=== PATIENT | female | born 1985 | race Two or more races ===

== ENCOUNTER 2019-06-29 09:22 | Emergency (ER) | payer OTHER ==
[2019-06-29 09:51] VITALS: TEMP 98.4; BMI 32.4
--- NOTE | 2019-06-29 11:19 | PDOC ---
History of Present Illness - General Chief Complaint: Vaginal Bleeding Stated Complaint: 7WKS/BLEEDING Time Seen by Provider: 06/29/19 09:58 - History of Present Illness Initial Comments: 06/29/19 11:17 CHIEF COMPLAINT: vag bldg in HISTORY OF PRESENT ILLNESS: 33 yo with hx of ectopic and miscarriage presents to ED with vaginal bleeding since yesterday. Patient reports noticing small clots since last night and today but is not filling any pads. Patient reports she does not have an OB at this time . LMP 05/08/19 No recent travel or sick contacts. PAST MEDICAL HISTORY: Denies past medical history FAMILY HISTORY: Denies SOCIAL HISTORY: Denies tobacco, alcohol, illicit drug use. SURGICAL HISTORY: Denies ALLERGIES: No known drug allergies REVIEW OF SYSTEMS General/Constitutional: Denies fever or chills. Denies weakness, weight change. HEENT: Denies change in vision. Denies ear pain or discharge. Denies sore throat. Cardiovascular: Denies chest pain or shortness of breath. Respiratory: Denies cough, wheezing, or hemoptysis. Gastrointestinal: Denies nausea, vomiting, diarrhea or constipation. Denies rectal bleeding. Genitourinary: Vaginal bleeding x 1 day. Denies dysuria, frequency, or change in urination. Musculoskeletal: Denies joint or muscle swelling or pain. Denies neck or back pain. Skin and breasts: Denies rash or easy bruising. Neurologic: Denies headache, vertigo, loss of consciousness, or loss of sensation. Psychiatric: Denies depression or anxiety. PHYSICAL EXAM General Appearance: Well-appearing, appropriately dressed. No apparent distress , no intoxication. HEENT: EOMI, PERRLA, normal ENT inspection, normal voice, TMs normal, pharynx normal. No conjunctival pallor. No photophobia, scleral icterus. Neck: Supple. Trachea midline. No tenderness, rigidity, carotid bruit, stridor , lymphadenopathy, or thyromegaly. Respiratory/Chest: Lungs CTAB. No shortness of breath, chest tenderness, respiratory distress, accessory muscle use. No crackles, rales, rhonchi, stridor , wheezing, dullness Cardiovascular: RRR. S1, S2. No JVD, murmur, bradycardia, tachycardia. Vascular Pulses: Dorsalis-Pedis (R): 2+, Dorsalis-Pedis (L): 2+ Gastrointestinal/Abdominal: Normal bowel sounds. Abdomen soft, non-distended. No tenderness or rebound tenderness. No organomegaly, pulsatile mass, guarding , hernia, hepatomegaly, splenomegaly. Pelvic: External genitalia normal without lesions. Vaginal vault with moderate amount of bloody discharge. Cervix is long and closed. No cervical motion tenderness. Uterus is nontender and normal in size. Adnexa are nontender and without masses. Lymphatic: No adenopathy, tenderness. Musculoskeletal/Extremities: Normal inspection. FROM of all extremities, normal capillary refill. Pelvis Stable. No CVA tenderness. No tenderness to extremities, pedal edema, swelling, erythema or deformity. Integumentary: Appropriate color, dry, warm. No cyanosis, erythema, jaundice or rash Neurologic: post secondary professional II-XII intact. Fully oriented, alert. Appropriate mood/affect. Motor strength 5/5. No appreciable EOM palsy, facial droop or sensory deficit. Past History - Past Medical History Allergies/Adverse Reactions: Allergies Allergy/AdvReac Type Severity Reaction Status Date / Time No Known Allergies Allergy Verified 06/29/19 09:46 Home Medications: Ambulatory Orders NK [No Known Home Medication] 06/29/19 - Reproductive History Is Patient Now?: Yes (#): 6 Para: 2 Ectopic : Yes (X1) Therapeutic (s) & number: No Tubal Ligation: No Spontaneous : 1 - Psycho Social/Smoking Cessation Hx Smoking History: Never smoked Have you smoked in the past 12 months: No Hx Alcohol Use: No Drug/Substance Use Hx: No *Physical Exam - Vital Signs Last Vital Signs Temp Pulse Resp BP Pulse Ox 98.4 F 83 16 106/62 100 06/29/19 09:48 06/29/19 09:48 06/29/19 09:48 06/29/19 09:48 06/29/19 09:48 ED Treatment Course - LABORATORY CBC & Chemistry Diagram: 06/29/19 11:05 06/29/19 11:05 - RADIOLOGY Radiology Studies Ordered: Category Date Time Status TRANSVAGINAL US PREG [US] Stat Ultrasound 06/29/19 10:46 Ordered Discharge - Discharge Information Problems reviewed: Yes Clinical Impression/Diagnosis: Vaginal bleeding during , Threatened miscarriage in early Condition: Stable Disposition: HOME - Admission No - Follow up/Referral Referrals: Alexus Quiroz MD [Staff Physician] - - Patient Discharge Instructions Patient Printed Discharge Instructions: DI for Threatened Additional Instructions: You must return in 2 DAYS for repeat testing for continued evaluation of your vaginal bleeding in . If you develop severe vaginal bleeding (more than 1 soaked pad an hour), lightheadedness, dizziness, palpitations, shortness of breath, or any new or worsening symptoms, please return to the ER immediately. - Post Discharge Activity
[2019-06-29 11:37] LABS: BASO % 0.2 % (0-2.0); EOS % 0.9 % (0-4.5); HEMATOCRIT 36.9 % (32.4-45.2); HEMOGLOBIN 12.5 GM/dL (10.7-15.3); LYMPH % 17.5 % (8-40); MCHC 33.9 g/dl (32.0-36.0); MEAN CELL VOLUME 88.5 fl (80-96); MEAN PLT VOLUME 8.2 fl (7.5-11.1); MONO % 8.2 % (3.8-10.2); NEUT % 73.2 % (42.8-82.8); PLATELET COUNT 348 K/MM3 (134-434); RBC 4.17 M/mm3 (3.60-5.2); RDW 14.9 % (11.6-15.6)
[2019-06-29 11:41] LABS: EPI CELLS 5.7 /HPF (0-5/HPF); HYALINE CASTS 8 /lpf (0-8); URINE APPEARANCE CLOUDY; URINE BACTERIA 91.5 /hpf (NEGATIVE); URINE BILIRUBIN NEGATIVE (NEGATIVE); URINE COLOR YELLOW; URINE GLUCOSE (UA) NEGATIVE (NEGATIVE); URINE KETONE NEGATIVE (NEGATIVE); URINE LEUK ESTERASE NEGATIVE (NEGATIVE); URINE NITRITE NEGATIVE (NEGATIVE); URINE PROTEIN TRACE (NEGATIVE); URINE RBC 1 /hpf (0-4); URINE WBC 4 /hpf (0-5)
[2019-06-29 11:56] LABS: PROTHROMBIN TIME (PATIENT) 11.8 SEC (9.7-13.0)
[2019-06-29 11:59] LABS: ACTIVATED PTT 29.6 SECONDS (25.2-36.5)
[2019-06-29 12:26] LABS: ALBUMIN 3.5 g/dl (3.4-5.0); BILIRUBIN,TOTAL 0.4 mg/dL (0.2-1); CALCIUM 8.8 mg/dL (8.5-10.1); CREATININE 0.5 mg/dL (0.55-1.3); POTASSIUM 3.7 mmol/L (3.5-5.1)
[2019-06-29 14:36] VITALS: BP 117/74; PULSE 84
== END 2019-06-29 14:29 | disposition home or self-care (01) ==
LOC: JER 09:22
DX: O26.891 Other specified pregnancy related conditions, first trimester (principal); Z3A.01 Less than 8 weeks gestation of pregnancy; N93.9 Abnormal uterine and vaginal bleeding, unspecified; O20.0 Threatened abortion
CPT/HCPCS: 36415; 76817-TC; 80053; 81003; 84702; 85025; 85610; 85730; 86850; 86900; 86901; 87491; 87591; 87661; 99283-25

== ENCOUNTER 2020-02-01 08:10 | Inpatient (IN) | payer OTHER ==
[2020-02-01] MEDS ORDERED: CITRIC ACID/SODIUM CITRATE 30 ML UNIT-DOSE CUP PO ONE ×2 (10:00)
[2020-02-01] MEDS ORDERED: ELECTROLYTE-148 SOLN 500 ML IV ONE (10:00)
[2020-02-01 10:02] VITALS: BMI 38.2
--- NOTE | 2020-02-01 10:34 | HP ---
Past Medical History - Primary Care Physician PCP:: Jonathan Soler - Admission Chief Complaint: scheduled C/S History of Present Illness: prior C/S x 2 desiring repeat and sterilization. 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: No: Alzheimer's, CVA, Dementia, Migraine, Multiple Sclerosis, Peripheral Neuropathy, Parkinson's, Seizure, Syncope, TIA, Vertigo, Other Cardiovascular: No: AFIB, Aneurysm, Aortic Insufficiency, Aortic Stenosis, CAD, CHF, Deep Vein Thrombosis, HTN, Hyperlipdemia, AL, Mitral Insufficiency, Mitral Stenosis, Murmur, Pulmonary Hypertension, Other Pulmonary: No: Asthma, Bronchitis, Cancer, COPD, O2 Dependent, Pneumonia, Previously Intubated, Pulmonary Embolus, Pulmonary Fibrosis, Sleep Apnea, Other Gastrointestinal: No: Ascites, Cancer, Constipation, Crohn's Disease, Diverticulitis, Diverticulosis, Esophageal Varices, Gastritis, GERD, GI Bleed, Hemorrhoids, Hiatal Hernia, Inflamatory Bowel Disease, Irritable Bowel Disease, Pancreatitis, Peptic Ulcer Disease, Ulcerative Colitis, Other Hepatobiliary: No: Cirrhosis, Cholelithiasis, Cholecystitis, Choledocholithiasis, Hepatitis A, Hepatitis B, Hepatitis C, Other Renal/: No: Renal Failure, Renal Inusuff, BPH, Cancer, Hematuria, Hemodialysis, Neurogenic Bladder, Renal Calculi, UTI, Other Reproductive: No: Ectopic , Endometriosis, Fibroids, PID, Polycystic Ovary Syndrome, Postmenopausal, Other ...: 6 ...Para: 2 ...Term: 2 ...: 0 ...Spon : 1 ...Induced : 2 ...Living Children: 2 ...Multiple Gestation: 0 ...LMP: 05/08/19 ... Weeks Gestation by Dates: 38.0 ...EDC by Dates: 02/12/20 ...EDC by Sono: 02/05/20 Heme/Onc: No: Anemia, B12 Deficiency, Bleeding Disorder, Cancer, Current Chemotherapy, Current Radiation Therapy, Hemochromatosis, Hypercoaguable State, Myeloproliferative Synd, Sickle Cell Disease, Sickle Cell Trait, Thrombocytopenia, Other Infectious Disease: No: AIDS, C-Diff, Herpes Zoster, HIV, MRSA, STD's, Tuberculosis, VREF, Other Psych: No: Addictions, Anxiety, Bipolar, Depression, Panic, Psychosis, Schizophrenia, Other Musculoskeletal: No: Bursitis, Chronic low back pain, Hemiparesis, Hemiplegia, Osteoarthritis, Paraplegia, Other Rheumatology: No: Fibromyalgia, Gout, Lupus, Rheumatoid Arthritis, Sarcoidosis, Vasculitis, Other ENT: No: Allergic Rhinitis, Sinusitis, Other Endocrine: No: Ector's Disease, Wolf's Disease, Diabetes Insipidus, Diabetes Mellitus, Hyperparathyroidism, Hyperthyroidism, Hypothyroidism, Osteopenia, SIADH, Other Dermatology: No: Basal Cell, Cellulitis, Eczema, Melanoma, Psoriasis, Squamous Cell, Other - Past Surgical History Past Surgical History: Yes: Appendectomy, Cholecystectomy, Hx Myomectomy: No Hx Transabdominal Cerclage: No - Smoking History Smoking history: Never smoked Have you smoked in the past 12 months: No - Alcohol/Substance Use Hx Alcohol Use: No History of Substance Use: reports: None - Social History History of Recent Travel: No Home Medications - Allergies Allergies/Adverse Reactions: Allergies Allergy/AdvReac Type Severity Reaction Status Date / Time shellfish derived Allergy Severe Itching Verified 02/01/20 09:14 - Home Medications Home Medications: Ambulatory Orders Pnv No.95/Ferrous Fum/Folic AC [ Formula] 1 each PO DAILY 02/01/20 Family Medical History Family History: Unremarkable Review of Systems - Review of Systems Constitutional: reports: No Symptoms Eyes: reports: No Symptoms HENT: reports: No Symptoms Neck: reports: No Symptoms Cardiovascular: reports: No Symptoms Respiratory: reports: No Symptoms Gastrointestinal: reports: No Symptoms Genitourinary: reports: No Symptoms Breasts: reports: No Symptoms Reported Musculoskeletal: reports: No Symptoms Integumentary: reports: No Symptoms Neurological: reports: No Symptoms Endocrine: reports: No Symptoms Hematology/Lymphatic: reports: No Symptoms Psychiatric: reports: No Symptoms Physical Exam - Maternity Vital Signs: Vital Signs Temperature 98.2 F 02/01/20 09:30 Pulse Rate 85 02/01/20 09:30 Respiratory Rate 18 02/01/20 09:30 Blood Pressure 110/60 02/01/20 09:30 O2 Sat by Pulse Oximetry (%) Constitutional: Yes: No Distress HENT: Yes: Atraumatic Neck: Yes: Supple Cardiovascular: Yes: Regular Rate and Rhythm Breast(s): Yes: Other - Abdominal Exam/OB Number of Fetuses: Single Presentation: Vertex Contractions: Yes Regularity: Irregular Intensity: Unaware Monitor Mode: External Heart Rate (range): 1 60 Category: I Accelerations: None Decelerations: None - Vaginal Exam/OB Vaginal Bleeding: No Speculum Exam: No - Physical Exam Musculoskeletal: Yes: WNL Extremities: Yes: WNL Edema: Yes Edema: LLE: Trace, RLE: Trace Integumentary: Yes: WNL ...Motor Strength: WNL Psychiatric: Yes: Alert, Oriented Imaging - Results Ultrasound: Report Reviewed Assessment/Plan 34 y/o @ 39.3wks, prior c/s x2, desiring repeat and sterilization. Patient counseled extensively as outpatient and [facility] consnet previously signed. Risks and complications of procedure discussed at length and all questions answered. Pre- op consent obtained for repeat c/s and bilateral salpingectomy. - Proceed with procedure
[2020-02-01] MEDS ORDERED: oxyCODONE HCL 5 MG TABLET PO PRN (10:36)
[2020-02-01] MEDS ORDERED: IBUPROFEN 800 MG/8 ML IJ IVPB PRN (10:36)
[2020-02-01] MEDS ORDERED: OXYTOCIN 20 UNITS in 0.9% NS 20 UNIT/1,000 ML INFUS.BAG IV SCH (10:45)
[2020-02-01] MEDS ORDERED: morphine SULFATE/PF 0.5 MG/ML (2cc Syringe - QUVA) ONE (10:48)
[2020-02-01] MEDS ORDERED: OXYTOCIN 10 UNITS/ML VIAL ONE (10:49)
[2020-02-01] MEDS ORDERED: KETOROLAC TROMETHAMINE 30 MG/1 ML VIAL ONE (10:49)
[2020-02-01] MEDS ORDERED: ceFAZolin SODIUM 1 GM VIAL ONE (10:49)
--- NOTE | 2020-02-01 11:07 | OP ---
Operative Note - Note: Operative Date: 02/01/20 (dic #[id number]) Pre-Operative Diagnosis: Prior C/S x 2 at term desiring repeat and sterilization Operation: LTCS and BS Findings: see dictation Post-Operative Diagnosis: Same as Pre-op Surgeon: Jonathan Soler Pelt Grader: Scott Hernandez Anesthesia: Spinal Specimens Removed: bilateral fallopian tubes Estimated Blood Loss (mls): 700 Operative Report Dictated: Yes
[2020-02-01] MEDS ORDERED: morphine SULFATE/PF 0.5 MG/ML (2cc Syringe - QUVA) SPIN ONE (11:35)
[2020-02-01] MEDS ORDERED: ONDANSETRON 4 MG/2 ML VIAL IVPUSH PRN (12:42)
[2020-02-01] MEDS ORDERED: ACETAMINOPHEN 1000 MG/100 ML VIAL (NON FORMULARY) IVPB ONE (12:44)
[2020-02-01] MEDS ORDERED: LACTATED RINGERS SOLUTION 1,000 ML IV SCH (12:45)
[2020-02-01] MEDS ORDERED: OXYTOCIN 20 UNITS in 0.9% NS 20 UNIT/1,000 ML INFUS.BAG IV ONE (12:52)
--- NOTE | 2020-02-01 20:12 | OP ---
DATE OF OPERATION: 02/01/2020 PREOPERATIVE DIAGNOSIS: A 34-year-old 6, para 2, at 39 and 3 weeks of gestation, previous section x2, desiring repeat section and sterilization. POSTOPERATIVE DIAGNOSIS: A 34-year-old 6, para 2, at 39 and 3 weeks of gestation, previous section x2, desiring repeat section and sterilization. PROCEDURE: Low transverse repeat section and bilateral salpingectomy. SURGEON: Brandee Bryant MD. COORDINATOR MINING PRODUCTS: LUCY John. ANESTHESIA: Spinal. ESTIMATED BLOOD LOSS: 700 mL. INTRAVENOUS FLUIDS: Per anesthesia. URINE: Clear. COMPLICATIONS: None. INTRAOPERATIVE FINDINGS: High low abdominal scar consistent with prior procedure, moderate amount of subcutaneous adipose and fibrotic tissue. The fascia was thick and fibrotic, adherent to the underlying rectus muscles. Rectus muscles were fused to each other in the midline. No parietal peritoneal visceral adhesions noted. The lower uterine segment was pronouncedly effaced. Fundus consistent with normal anatomy the infant was in cephalic presentation. Clear amniotic fluid. Loose nuchal cord x3. Live viable male. Right fallopian tube and ovary consistent with normal anatomy. Left ovary consistent with normal anatomy. Left distal tube missing. Just a small portion of the proximal aspect of the tube noted. DESCRIPTION OF PROCEDURE: The patient was taken to the operating room where anesthesia was found to be adequate. She was then prepped and draped in the normal sterile fashion. A Berrios catheter was placed atraumatically. Appropriate timeout took place. Pfannenstiel skin incision was made with the scalpel and carried to underlying fascia with Bovie. The fascia was incised in the midline and incision extended laterally with sharp dissection. The underlying rectus muscles were dissected off sharply. The rectus muscles were elevated in the midline and dissected off sharply and superiorly. Incidental entry into the peritoneal cavity revealed no visceral adhesions. Incision was extended superiorly and inferiorly without difficulty. Bladder blade was placed with findings as previously mentioned. A low transverse lower uterine segment incision was made with the scalpel and extended laterally with blunt dissection. Amniotomy revealed clear amniotic fluid. Infant was delivered through surgical incision with mild fundal pressure. Findings as previously mentioned. The umbilical cord was clamped and cut after delay. Samples of blood were obtained. The infant was handed off to the waiting NICU staff. The placenta was delivered manually and intact. The uterus was exteriorized through the surgical incision, and the intrauterine cavity was cleared of al clots and debris. The lower uterine segment incision was reapproximated with 1-0 Polysorb running locked suture. Excellent structural reapproximation with 1 layer suture. Mild oozing from the inferior edge of the right corner of the incision, neutralized with 2-0 chromic [id number] stitch. Attention was directed to the right fallopian tube which underwent excision utilizing the LigaSure instrument. Excellent hemostasis from the surgical stump noted. Attention was then directed to the contralateral fallopian tube which had was gone partial salpingectomy as mentioned previously due to ectopic , proximal small proximal portion of the tube was elevated with [place] clamps and excised with the LigaSure instrument. Specimen sent to pathology. Excellent hemostasis noted. The uterus was internalized to the pelvic cavity, and gutters were cleared of all clots and debris. Once again, inspection revealed excellent hemostasis from the incision. Bladder dome and rectal muscles fascial interfaced. A small area of the fascia superiorly had a defect and it was neutralized by a mattress suture of 1-0 Polysorb. The defect was completely obliterated, confirmed by palpation by the surgeon. The fascial incision was reapproximated with 0 Polysorb running nonlocking sutures. Excellent structural reapproximated achieved and confirmed by digital palpation by the surgeon. Subcutaneous tissues were copiously irrigated. Bleeders neutralized with Bovie cautery. Skin was reapproximated with surgical leo. The patient in stable condition going to the recovery room. Instrument count was reported as correct x2 by the staff. BRANDEE BRYANT MD [id number] [facility]ITALYel[facility]
[2020-02-01] MEDS ORDERED: SENNOSIDES/DOCUSATE COMBO (SENNA PLUS) TABLET (UD) PO PRN (22:00)
[2020-02-02] MEDS: ELECTROLYTE-148 SOLN 1,000 ML IV SCH ×2 (07:06→12:17)
--- NOTE | 2020-02-02 07:35 | PN ---
Post Progress Note - Subjective Subjective: Diana in place, lochia decreases, no N/V, PP/post-op precautions discussed. Post Day: 1 Type of Delivery: Repeat C/S Vital Signs: Vital Signs Temperature 98.6 F 02/02/20 06:00 Pulse Rate 70 02/02/20 06:00 Respiratory Rate 18 02/02/20 07:00 Blood Pressure 109/72 02/02/20 06:00 O2 Sat by Pulse Oximetry (%) Breast Exam: Yes: Other Uterus: Yes: Fundus Firm Incision: Yes: Dressing dry and intact (revomed), [place] intact Abdomen/GI: Yes: Abdomen soft Lochia, amount: Moderate Extremities: Yes: Calves non-tender Perineum: Yes: Intact Activity: Ambulating Assessment/Plan POD # 1 S/P RLTCS and BS in stable condition. Procedure performed at noon -Continue PP/post-op precautions -Encourage ambulation -D/C diana -Anticipate D/C on POD # 2 vs 3
[2020-02-02 08:15] LABS: BASO % 0.1 % (0-2.0); EOS % 2.5 % (0-4.5); HEMATOCRIT 34.4 % (32.4-45.2); HEMOGLOBIN 11.7 GM/dL (10.7-15.3); LYMPH % 13.2 % (8-40); MCH 30.9 pg (25.7-33.7); MEAN CELL VOLUME 90.8 fl (80-96); MEAN PLT VOLUME 8.7 fl (7.5-11.1); MONO % 5.8 % (3.8-10.2); NEUT % 78.4 % (42.8-82.8); PLATELET COUNT 232 K/MM3 (134-434); RBC 3.78 M/mm3 (3.60-5.2); RDW 13.9 % (11.6-15.6); WHITE BLOOD COUNT 8.2 K/mm3 (4.0-10.0)
[2020-02-02] MEDS ORDERED: BISACODYL 10 MG SUPP.RECT RC PRN (10:36)
[2020-02-02] MEDS: IBUPROFEN 600 MG TABLET (FP) PO PRN ×2 (10:52→23:58)
[2020-02-02] MEDS: ACETAMINOPHEN 325 MG TABLET (FP) PO PRN ×2 (10:53→23:59)
[2020-02-02] MEDS: SIMETHICONE 80 MG TAB.CHEW (FP) PO PRN ×2 (10:53→23:58)
--- NOTE | 2020-02-02 12:16 | PN ---
HC Provider Note Provider Note: Anesthesia Post Op Note Pt s/p spinal for c/s Pt awake alert ambulating well Reports good pain control and no urinary retention denies h/a, n/v, puritis VSS no apparent anesthesia complications Codie Celis.
--- NOTE | 2020-02-03 07:04 | DS ---
Physical Exam-BURNISHER Vital Signs: Vital Signs Temperature 99.2 F 02/02/20 22:00 Pulse Rate 74 02/02/20 22:00 Respiratory Rate 20 02/02/20 22:00 Blood Pressure 116/75 02/02/20 22:00 O2 Sat by Pulse Oximetry (%) Constitutional: Yes: Well Nourished, No Distress, Calm Eyes: Yes: WNL, Conjunctiva Clear, EOM Intact HENT: Yes: WNL, Atraumatic, Normocephalic Neck: Yes: WNL, Supple, Trachea Midline Cardiovascular: Yes: WNL, Regular Rate and Rhythm Respiratory: Yes: WNL, Regular, CTA Bilaterally Gastrointestinal: Yes: WNL ...Rectal Exam: Yes: WNL Renal/: Yes: WNL ....Post : Yes: Uterus firm, Uterus non-tender, Slight lochia rubra Breast(s): Yes: WNL Musculoskeletal: Yes: WNL Extremities: Yes: WNL Integumentary: Yes: WNL Wound/Incision: Yes: Clean/Dry, Well Approximated, Sutures Intact Neurological: Yes: WNL, Alert, Oriented ...Motor Strength: WNL Psychiatric: Yes: WNL, Alert, Oriented Labs: CBC, BMP 02/02/20 07:21 Delivery - Delivery Type of Anesthesia: Spinal Episiotomy/Laceration: None EBL (cc): 600 Delivery, Single - Stages of Labor Date of Delivery: 02/01/20 Time of Delivery: 11:54 Time Placenta Delivered: 11:56 Placenta: Yes: Expressed - Condition of Marine Drafter/Carbonizer Tester Present: Yes Name: Modesta Smith Infant Gender: Male Weight: 8 lb 6 oz Position: Right, OT Total Hours ROM (Hrs/Mins): 1 min - 1 Minute Total Score: 9 5 Minutes Total Score: 9 - [place] Feeding Plan Initial Plan: Elected not to breastfeed exclusively throughout hospitalization Discharge Summary Problems reviewed: Yes Reason For Visit: REPEAT Hospital Course: no complication Plan of Treatment: folllow up [facility] care 1 week Condition: Stable - Instructions Diet, Activity, Other Instructions: Regular diet as tolerated, follow up within a week for incision check, take medications as prescribed, avoid strenuous activity until clear by MD, Call health center with any questions or concerns. Referrals: Jonathan Soler MD [Staff Physician] - Disposition: HOME - Home Medications Comprehensive Discharge Medication List: Ambulatory Orders Acetaminophen [Tylenol] 650 mg PO Q6H PRN #30 capsule MDD 5 02/01/20 Ibuprofen 600 mg PO Q6H PRN #30 tablet 02/01/20 Oxycodone HCl 5 mg PO Q6H PRN #14 capsule MDD 5 02/01/20 Pnv No.95/Ferrous Fum/Folic AC [ Formula] 1 each PO DAILY 02/01/20 Miscellaneous Medical Supply [Electronic Breast Pumo] 1 each NR ASDIR #1 unit 02/02/20
[2020-02-03 09:21] VITALS: BP 124/81; PULSE 72; TEMP 97.4
--- NOTE | 2020-02-06 16:36 | PATH ---
Surgical Pathology Report Patient Name: [facility]. Rec. 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 PLACENTA: THIRD TRIMESTER PLACENTA WITH FOCAL INCREASED PERIVILLOUS FIBRIN DEPOSITION. TRIVASCULAR CORD. MEMBRANES WITH NO DIAGNOSTIC ABNORMALITIES. B. LEFT FALLOPIAN TUBE, RESECTION: LUMINAL PORTION OF FALLOPIAN TUBE WITH DECIDUAL CHANGE IN THE STROMA. COMPLETE CROSS SECTION OF THE FALLOPIAN TUBE LUMEN IDENTIFIED. C. RIGHT FALLOPIAN TUBE, SALPINGECTOMY: PORTION OF FALLOPIAN TUBE WITH PARATUBAL CYSTS. COMPLETE CROSS SECTION OF THE FALLOPIAN TUBE LUMEN IDENTIFIED. Electronically Signed Edmond Benoit M.D. Gross Description A. The specimen is received fresh labeled "placenta" and is a 509 gram, 19 x 14 x 2.5 cm. placenta with attached membranes and umbilical cord. The attached membranes are glistening and translucent and insert marginally. The umbilical cord measures 39 cm. in length and averages 1 cm. in diameter. The cord inserts eccentrically 1 cm from the margin. No true knots or strictures are identified. Cut surface of the umbilical cord reveals 3 vessels. The surface is staley-blue with minimal fibrin deposition and appropriate caliber vessels. The maternal surface is red-brown with focal defects. Sectioning reveals red-brown, spongy parenchyma. No lesions are identified. Laboratory Operations Coordinator sections are submitted in three cassettes as follows: 1- membrane rolls and umbilical cord; 2-3- full thickness sections of placenta. B. Received fresh labelled "left fallopian tube" is a 1.0cm long by 0.5 cm in diameter portion of tissue consistent with a portion of fallopian tube. The fimbriated end is not identified. No focal lesions are identified. Sectioned and sales representative sales manager sections submitted in one cassette. C. Received fresh labelled "right fallopian tube" is a 7.5 cm long by 0.6 cm in diameter portion of tissue consistent with a portion of fallopian tube. The fimbriated end is identified. Multiple cystic lesions consistent with paratubal cyst measuring up to 0.7 cm dimension are present. No focal lesions are identified. Sectioned and totally submitted in one cassette. __ ANGELA/02/02/2020 mariah02/02/2020
== END 2020-02-03 14:30 | disposition home or self-care (01) | DRG 540 ==
LOC: JLDR 08:10 → J3W 14:24
PROVIDERS: ADMIT Student in an Organized Health Care Education/Training Program; ATTEND Student in an Organized Health Care Education/Training Program
PROC: 10D00Z1 Extraction of Products of Conception, Low, Open Approach (ICD-10-PCS; principal; 2020-02-01)
PROC: 0UB70ZZ Excision of Bilateral Fallopian Tubes, Open Approach (ICD-10-PCS; 2020-02-01)
DX: O82 Encounter for cesarean delivery without indication (principal); Z3A.39 39 weeks gestation of pregnancy; Z37.0 Single live birth; Z30.2 Encounter for sterilization; Z98.891 History of uterine scar from previous surgery; O69.81X0 Labor and delivery complicated by cord around neck, without compression, not applicable or unspecified
CPT/HCPCS: 36415; 85025; 88302-TC; 88307-TC